=== PATIENT | male | born 1940 | race Caucasian/White ===

== ENCOUNTER → 2016-08-13 | Outpatient (CLI) | payer MEDICARE, BC | LOC: COL.LAB 10:25 | DX: Z96.641 Presence of right artificial hip joint (principal) ==

== ENCOUNTER → 2017-10-31 | Outpatient (CLI) | payer MEDICARE, BC | LOC: COL.LAB 10:40 | DX: Z01.812 Encounter for preprocedural laboratory examination (principal) ==